=== PATIENT | female | born 1985 | race African-American/Black ===

== ENCOUNTER 2020-02-15 17:45 | Observation (INO) | payer SELFPAY ==
[~2020-02-15] VITALS: Ht 170.2 cm; Wt 64.9 kg
[~2020-02-15 17:45] MED LIST: PREN-88 PO
== END 2020-02-15 20:10 | disposition home or self-care (01) ==
LOC: 8 EST LDRP 17:45
PROVIDERS: ADMIT Obstetrics & Gynecology; ATTEND Obstetrics & Gynecology
DX: O26.892 Other specified pregnancy related conditions, second trimester (principal); R19.7 Diarrhea, unspecified; R10.30 Lower abdominal pain, unspecified; M54.5 Low back pain; Z3A.21 21 weeks gestation of pregnancy
CPT/HCPCS: 76805; 99281; G0378

== ENCOUNTER 2020-02-19 06:37 | Emergency (ER) | payer MEDICAID, OTHER, SELFPAY ==
[~2020-02-19] VITALS: Ht 170.2 cm; Wt 84.0 kg
[2020-02-19] MEDS ORDERED: SODIUM CHLORIDE 0.9% 1,000 ML IV ONE (07:14)
[2020-02-19 07:43] LABS: BASOPHILS % 0.4 % (0.0-2.0); EOSINOPHILS % 0.1 % (0.0-5.0); HEMATOCRIT. 35.1 % (36.0-48.0); HEMOGLOBIN. 12.3 g/dL (12.0-16.0); LYMPHOCYTES % 33.2 % (20.0-50.0); MEAN CORPUSCULAR HEMOGLOBIN 31.7 pg (28.0-32.0); MEAN CORPUSCULAR VOLUME 90.7 fL (81.0-99.0); MEAN PLATELET VOLUME 10.7 fl (7.4-10.4); MONOCYTES % 6.2 % (2.0-8.0); NEUTROPHILS % 60.1 % (40.0-76.0); PLATELET 164 x1000/uL (130-400); RED BLOOD CELL COUNT 3.87 mill/uL (4.2-5.4); RED CELL DISTRIBUTION WIDTH 14.1 % (11.6-14.6)
[2020-02-19 08:09] LABS: CHLORIDE 107 mEq/L (98-107)
[2020-02-19] MEDS ORDERED: POTASSIUM CHLORIDE 20MEQ TABLET SR PO ONE (08:15)
[2020-02-19 10:02] LABS: CLARITY URINE CLOUDY (CLEAR); COLOR URINE YELLOW (YELLOW); KETONES URINE 1+ (NEGATIVE); LEUKOCYTE ESTERASE URINE 2+ (NEGATIVE); NITRITE URINE POSITIVE (NEGATIVE); OCCULT BLOOD URINE NEGATIVE (NEGATIVE); PROTEIN URINE TRACE (NEGATIVE); SPECIFIC GRAVITY URINE 1.019 (1.005-1.030)
[2020-02-19 10:30] VITALS: BP 119/67
== END 2020-02-19 10:30 | disposition home or self-care (01) ==
LOC: ER 06:37
DX: O98.512 Other viral diseases complicating pregnancy, second trimester (principal); U07.1 COVID-19; O23.42 Unspecified infection of urinary tract in pregnancy, second trimester; O26.892 Other specified pregnancy related conditions, second trimester; E87.6 Hypokalemia; F41.9 Anxiety disorder, unspecified; G43.909 Migraine, unspecified, not intractable, without status migrainosus; J45.909 Unspecified asthma, uncomplicated; Z3A.21 21 weeks gestation of pregnancy; Z88.0 Allergy status to penicillin
CPT/HCPCS: 36415; 71045; 80053; 81003; 81025; 82728; 83690; 85025; 85379; 86850; 86900; 86901; 87086; 87635; 99284; J7030

== ENCOUNTER 2020-05-11 22:29 | Observation (INO) | payer MEDICAID ==
[~2020-05-11] VITALS: Ht 170.2 cm; Wt 88.5 kg
[2020-05-11] MEDS ORDERED: TERBUTALINE SULFATE 1MG/ML VIAL SUBCUT PRN (23:30)
[2020-05-11] MEDS ORDERED: SODIUM CHLORIDE 0.9% 1,000 ML IV ONE (23:30)
[2020-05-11 23:51] LABS: CLARITY URINE CLEAR (CLEAR); COLOR URINE YELLOW (YELLOW); KETONES URINE NEGATIVE (NEGATIVE); LEUKOCYTE ESTERASE URINE 2+ (NEGATIVE); NITRITE URINE NEGATIVE (NEGATIVE); OCCULT BLOOD URINE NEGATIVE (NEGATIVE); PROTEIN URINE NEGATIVE (NEGATIVE); SPECIFIC GRAVITY URINE 1.016 (1.005-1.030); UROBILINOGEN URINE 0.2 E.U./dL (0.2-1.0)
== END 2020-05-12 00:34 | disposition left against medical advice (07) ==
LOC: 8 EST LDRP 22:29
PROVIDERS: ADMIT Specialist; ATTEND Specialist
DX: O26.893 Other specified pregnancy related conditions, third trimester (principal); R10.9 Unspecified abdominal pain; M54.9 Dorsalgia, unspecified; Z3A.30 30 weeks gestation of pregnancy
CPT/HCPCS: 81003; 82731; 99281; G0378

== ENCOUNTER 2020-05-24 09:37 | Observation (INO) | payer MEDICAID ==
[~2020-05-24] VITALS: Ht 170.2 cm; Wt 88.5 kg
[2020-05-24] MEDS ORDERED: LACTATED RINGERS 1,000 ML IV SCH (10:18)
[2020-05-24 11:13] LABS: BASOPHILS % 0.4 % (0.0-2.0); EOSINOPHILS % 0.5 % (0.0-5.0); HEMATOCRIT. 28.1 % (36.0-48.0); HEMOGLOBIN. 9.5 g/dL (12.0-16.0); MEAN CORPUSCULAR HEMOGLOBIN 30.8 pg (28.0-32.0); MEAN CORPUSCULAR VOLUME 91.2 fL (81.0-99.0); MEAN PLATELET VOLUME 10.3 fl (7.4-10.4); MONOCYTES % 8.3 % (2.0-8.0); NEUTROPHILS % 65.8 % (40.0-76.0); PLATELET 152 x1000/uL (130-400); RED BLOOD CELL COUNT 3.08 mill/uL (4.2-5.4); RED CELL DISTRIBUTION WIDTH 14.8 % (11.6-14.6)
[2020-05-24 11:21] LABS: CLARITY URINE CLEAR (CLEAR); COLOR URINE YELLOW (YELLOW); KETONES URINE NEGATIVE (NEGATIVE); LEUKOCYTE ESTERASE URINE 1+ (NEGATIVE); NITRITE URINE NEGATIVE (NEGATIVE); OCCULT BLOOD URINE NEGATIVE (NEGATIVE); PROTEIN URINE NEGATIVE (NEGATIVE); SPECIFIC GRAVITY URINE 1.005 (1.005-1.030); UROBILINOGEN URINE 0.2 E.U./dL (0.2-1.0)
== END 2020-05-24 12:45 | disposition home or self-care (01) ==
LOC: 8 EST LDRP 09:37
PROVIDERS: ADMIT Obstetrics & Gynecology; ATTEND Obstetrics & Gynecology
DX: O26.893 Other specified pregnancy related conditions, third trimester (principal); R10.30 Lower abdominal pain, unspecified; Z3A.35 35 weeks gestation of pregnancy
CPT/HCPCS: 36415; 76805; 76818; 76830; 81003; 85025; 96360; 96361; 99281; G0378; J7120

== ENCOUNTER 2020-06-21 00:24 | Observation (INO) | payer MEDICAID ==
[~2020-06-21] VITALS: Ht 170.2 cm; Wt 91.2 kg
[2020-06-21] MEDS ORDERED: FERR325T6 PO (01:21)
[2020-06-29] MEDS ORDERED: IBUP-2030 MT (07:07)
== END 2020-06-21 02:10 | disposition home or self-care (01) ==
LOC: 8 EST LDRP 00:24
PROVIDERS: ADMIT Obstetrics & Gynecology; ATTEND Obstetrics & Gynecology
DX: O26.893 Other specified pregnancy related conditions, third trimester (principal); R10.9 Unspecified abdominal pain; Z3A.36 36 weeks gestation of pregnancy
CPT/HCPCS: 59025; G0378; 99281

== ENCOUNTER 2020-12-30 13:28 | Emergency (ER) | payer MEDICAID ==
[~2020-12-30] VITALS: Ht 167.6 cm; Wt 87.0 kg
[~2020-12-30 13:28] MED LIST changes: +FERR325T6 PO; +IBUP-2030 MT
[2020-12-30] MEDS ORDERED: IBUPROFEN 600MG TABLET PO STA (14:09)
[2020-12-30] MEDS ORDERED: LORAZEPAM 0.5MG TABLET PO ONE (14:15)
[2020-12-30 15:01] LABS: CHLORIDE 108 mEq/L (98-107)
[2020-12-30 15:07] LABS: BASOPHILS % 0.6 % (0.0-2.0); EOSINOPHILS % 0.5 % (0.0-5.0); HEMATOCRIT. 40.4 % (36.0-48.0); HEMOGLOBIN. 13.2 g/dL (12.0-16.0); LYMPHOCYTES % 29.2 % (20.0-50.0); MEAN CORPUSCULAR HEMOGLOBIN 29.3 pg (28.0-32.0); MEAN CORPUSCULAR VOLUME 90.1 fL (81.0-99.0); MEAN PLATELET VOLUME 10.7 fl (7.4-10.4); MONOCYTES % 6.9 % (2.0-8.0); NEUTROPHILS % 62.8 % (40.0-76.0); PLATELET 189 x1000/uL (130-400); RED BLOOD CELL COUNT 4.48 mill/uL (4.2-5.4); RED CELL DISTRIBUTION WIDTH 14.5 % (11.6-14.6)
[2020-12-30] MEDS ORDERED: IBUP-2028 MT (15:17)
[2020-12-30] MEDS ORDERED: LORA-249 MT (15:17)
[2020-12-30 15:25] VITALS: BP 118/79
== END 2020-12-30 15:46 | disposition home or self-care (01) ==
LOC: ER 14:19
DX: F41.1 Generalized anxiety disorder (principal); J45.909 Unspecified asthma, uncomplicated; Z98.890 Other specified postprocedural states; Z88.0 Allergy status to penicillin
CPT/HCPCS: 36415; 80053; 85025; 93005; 99284

== ENCOUNTER 2021-05-02 22:17 | Emergency (ER) | payer MEDICAID ==
[~2021-05-02] VITALS: Ht 167.6 cm; Wt 100.0 kg
[~2021-05-02 22:17] MED LIST changes: +IBUP-2028 MT; +LORA-249 MT
[2021-05-03] MEDS ORDERED: IBUPROFEN 600MG TABLET PO STA (00:33)
[2021-05-03 02:05] LABS: CLARITY URINE CLOUDY (CLEAR); COLOR URINE YELLOW (YELLOW); KETONES URINE NEGATIVE (NEGATIVE); LEUKOCYTE ESTERASE URINE NEGATIVE (NEGATIVE); NITRITE URINE NEGATIVE (NEGATIVE); OCCULT BLOOD URINE NEGATIVE (NEGATIVE); PH URINE 6.5 (4.5-8.0); PROTEIN URINE NEGATIVE (NEGATIVE); SPECIFIC GRAVITY URINE 1.011 (1.005-1.030); UROBILINOGEN URINE 0.2 E.U./dL (0.2-1.0)
[2021-05-03 02:29] VITALS: BP 138/86
[2021-05-03] MEDS ORDERED: NAPR-681 PO (02:39)
== END 2021-05-03 02:49 | disposition home or self-care (01) ==
LOC: ER 22:17
DX: J02.8 Acute pharyngitis due to other specified organisms (principal); F41.9 Anxiety disorder, unspecified; Z98.890 Other specified postprocedural states; Z88.0 Allergy status to penicillin
CPT/HCPCS: 81003; 81025; 87070; 87430; 93005; 99284

== ENCOUNTER 2021-05-07 12:22 | Emergency (ER) | payer MEDICAID ==
[~2021-05-07] VITALS: Ht 172.7 cm; Wt 100.0 kg
[~2021-05-07 12:22] MED LIST changes: +NAPR-681 PO
[2021-05-07] MEDS ORDERED: ACETAMINOPHEN WITH CODEINE 300/30MG TABLET PO ONE (12:45)
[2021-05-07] MEDS ORDERED: IBUP-2030 MT (13:25)
[2021-05-07 13:57] VITALS: BP 118/73
== END 2021-05-07 13:57 | disposition home or self-care (01) ==
LOC: ER 12:22
DX: S90.01XA Contusion of right ankle, initial encounter (principal); S90.31XA Contusion of right foot, initial encounter; F41.9 Anxiety disorder, unspecified; J45.909 Unspecified asthma, uncomplicated; Z98.890 Other specified postprocedural states; Z88.0 Allergy status to penicillin; W01.0XXA Fall on same level from slipping, tripping and stumbling without subsequent striking against object, initial encounter; Y93.89 Activity, other specified; Y92.018 Other place in single-family (private) house as the place of occurrence of the external cause
CPT/HCPCS: 73610; 73630; 99284

== ENCOUNTER 2021-09-02 16:58 | Emergency (ER) | payer SELFPAY ==
[~2021-09-02] VITALS: Ht 167.6 cm; Wt 95.0 kg
[2021-09-02] MEDS ORDERED: ACETAMINOPHEN 325MG TABLET PO ONE (18:30)
[2021-09-02] MEDS ORDERED: LORAZEPAM 1MG TABLET PO ONE (18:30)
[2021-09-02 19:03] LABS: BASOPHILS % 0.6 % (0.0-2.0); EOSINOPHILS % 0.8 % (0.0-5.0); HEMATOCRIT. 34.7 % (36.0-48.0); HEMOGLOBIN. 11.7 g/dL (12.0-16.0); LYMPHOCYTES % 30.4 % (20.0-50.0); MEAN CORPUSCULAR VOLUME 86.4 fL (81.0-99.0); MEAN PLATELET VOLUME 10.5 fl (7.4-10.4); NEUTROPHILS % 61.2 % (40.0-76.0); PLATELET 205 x1000/uL (130-400); RED BLOOD CELL COUNT 4.02 mill/uL (4.2-5.4); RED CELL DISTRIBUTION WIDTH 15.6 % (11.6-14.6)
[2021-09-02 19:08] LABS: CHLORIDE 110 mEq/L (98-107)
[2021-09-02] MEDS ORDERED: ACET-2708 MT (19:49)
[2021-09-02 20:26] VITALS: BP 110/77
== END 2021-09-02 20:33 | disposition home or self-care (01) ==
LOC: ER 16:58
DX: R07.89 Other chest pain (principal); J45.909 Unspecified asthma, uncomplicated; Z88.0 Allergy status to penicillin; Z79.899 Other long term (current) drug therapy; Z98.890 Other specified postprocedural states
CPT/HCPCS: 36415; 71045; 80053; 83880; 84484; 85025; 93005; 99285

== ENCOUNTER 2022-01-20 11:23 | Emergency (ER) | payer MEDICAID ==
[~2022-01-20] VITALS: Ht 170.2 cm; Wt 92.0 kg
[~2022-01-20 11:23] MED LIST changes: +ACET-2708 MT
[2022-01-20] MEDS ORDERED: MORPHINE SULFATE 4 MG/ML CPJ (NOT FOR IM USE) IV STA (11:33)
[2022-01-20] MEDS ORDERED: ONDANSETRON HCL 4MG/2ML INJ IV ONE (11:45)
[2022-01-20] MEDS ORDERED: SODIUM CHLORIDE 0.9% 1,000 ML IV ONE (11:45)
[2022-01-20] MEDS ORDERED: ACETAMINOPHEN 325MG TABLET PO ONE (12:00)
[2022-01-20 12:01] LABS: BASOPHILS % 0.6 % (0.0-2.0); EOSINOPHILS % 0.4 % (0.0-5.0); HEMATOCRIT. 33.8 % (36.0-48.0); HEMOGLOBIN. 11.5 g/dL (12.0-16.0); LYMPHOCYTES % 28.1 % (20.0-50.0); MEAN CORPUSCULAR HEMOGLOBIN 28.8 pg (28.0-32.0); MEAN PLATELET VOLUME 10.3 fl (7.4-10.4); MONOCYTES % 7.5 % (2.0-8.0); NEUTROPHILS % 63.4 % (40.0-76.0); PLATELET 210 x1000/uL (130-400); RED BLOOD CELL COUNT 3.98 mill/uL (4.2-5.4); RED CELL DISTRIBUTION WIDTH 15.6 % (11.6-14.6)
[2022-01-20 12:08] LABS: CHLORIDE 110 mEq/L (98-107)
[2022-01-20 12:13] LABS: HCG SCREEN NEGATIVE
[2022-01-20] MEDS ORDERED: TOPUD MT (14:47)
[2022-01-20 15:05] VITALS: BP 126/76
== END 2022-01-20 15:05 | disposition home or self-care (01) ==
LOC: ER 11:48
DX: N88.8 Other specified noninflammatory disorders of cervix uteri (principal); F12.10 Cannabis abuse, uncomplicated; J45.909 Unspecified asthma, uncomplicated; Z88.0 Allergy status to penicillin; Z98.890 Other specified postprocedural states
CPT/HCPCS: 36415; 76830; 76856; 80053; 83690; 84703; 85025; 96361; 96374; 99284; J2270; J2405; J7030

== ENCOUNTER 2022-07-04 09:11 | Emergency (ER) | payer MEDICAID, OTHER ==
[~2022-07-04] VITALS: Ht 170.2 cm; Wt 90.0 kg
[~2022-07-04 09:11] MED LIST changes: +TOPUD MT
[2022-07-04] MEDS ORDERED: KETOROLAC 60MG/2ML VIAL IM ONE (09:15)
[2022-07-04] MEDS ORDERED: ACETAMINOPHEN WITH CODEINE 300/30MG TABLET PO ONE (09:15)
[2022-07-04 10:16] LABS: CHLORIDE 108 mEq/L (98-107)
[2022-07-04 10:17] LABS: BASOPHILS % 0.4 % (0.0-2.0); EOSINOPHILS % 0.1 % (0.0-5.0); HEMOGLOBIN. 11.9 g/dL (12.0-16.0); MEAN CORPUSCULAR HEMOGLOBIN 28.2 pg (28.0-32.0); MEAN CORPUSCULAR VOLUME 85.1 fL (81.0-99.0); MONOCYTES % 10.3 % (2.0-8.0); NEUTROPHILS % 70.2 % (40.0-76.0); PLATELET 205 x1000/uL (130-400); RED BLOOD CELL COUNT 4.23 mill/uL (4.2-5.4); RED CELL DISTRIBUTION WIDTH 15.9 % (11.6-14.6)
[2022-07-04 10:27] LABS: HCG SCREEN NEGATIVE
[2022-07-04] MEDS ORDERED: MORPHINE SULFATE 4 MG/ML CPJ (NOT FOR IM USE) IV ONE (11:15)
[2022-07-04 11:30] LABS: PROTHROMBIN TIME 11.2 sec (9.6-11.0)
[2022-07-04] MEDS ORDERED: TOPUD PO (12:41)
[2022-07-04] MEDS ORDERED: METRONIDAZOLE 500 MG PREMIX 100 ML IV ONE (13:00)
[2022-07-04] MEDS ORDERED: LEVOFLOXACIN 750MG PREMIX 150 ML IV ONE (13:00)
[2022-07-04] MEDS ORDERED: ACETAMINOPHEN 325MG TABLET PO STA (13:14)
[2022-07-04] MEDS ORDERED: IPRATROPIUM/ALBUTEROL 0.5-3(2.5)MG/3ML NEB HHN PRN (14:00)
[2022-07-04] MEDS ORDERED: ONDANSETRON HCL 4MG/2ML INJ IV PRN (14:00)
[2022-07-04] MEDS ORDERED: CLONIDINE 0.1MG TABLET PO PRN (14:00)
[2022-07-04] MEDS ORDERED: METRONIDAZOLE 500 MG PREMIX 100 ML IV SCH (14:00)
[2022-07-04] MEDS ORDERED: ACETAMINOPHEN 325MG TABLET PO PRN (14:00)
[2022-07-04] MEDS ORDERED: SODIUM CHLORIDE 0.9% 1,000 ML IV SCH (14:00)
[2022-07-04] MEDS ORDERED: KETOROLAC 30MG/ML VIAL IV PRN (14:00)
[2022-07-04] MEDS ORDERED: DIPHENHYDRAMINE 50MG/ML VIAL IV PRN (14:00)
[2022-07-04] MEDS ORDERED: ONDANSETRON 4MG ODT PO ONE (22:45)
[2022-07-05 00:35] VITALS: BP 130/59
[2022-07-05] MEDS ORDERED: LEVOFLOXACIN 500MG PREMIX 100 ML IV SCH (11:00)
== END 2022-07-05 00:37 | disposition home or self-care (01) ==
LOC: ER 09:12 → EDBEDREQ 13:54 → CANBEDREQ 16:05 → ER 07-05 00:37 → CANBEDREQ 07-05 00:42
DX: R10.9 Unspecified abdominal pain (principal); M54.9 Dorsalgia, unspecified; K52.9 Noninfective gastroenteritis and colitis, unspecified; D64.9 Anemia, unspecified; F41.9 Anxiety disorder, unspecified; J45.909 Unspecified asthma, uncomplicated; F12.10 Cannabis abuse, uncomplicated; Z98.890 Other specified postprocedural states; Z79.899 Other long term (current) drug therapy; Z20.822 Contact with and (suspected) exposure to COVID-19
CPT/HCPCS: 36415; 74176; 80053; 83690; 84703; 85025; 85610; 87426; 93970; 96365; 96368; 96372; 96375; 99285; J1885; J1956; J2405; J3490; Q0162; J2270

== ENCOUNTER 2022-08-25 10:00 | Emergency (ER) | payer MEDICAID, OTHER ==
[~2022-08-25] VITALS: Ht 170.2 cm; Wt 86.2 kg
[~2022-08-25 10:00] MED LIST changes: +TOPUD PO
[2022-08-25] MEDS ORDERED: ONDANSETRON HCL 4MG/2ML INJ IV STA (10:27)
[2022-08-25] MEDS ORDERED: KETOROLAC 15MG/ML VIAL IV ONE (10:30)
[2022-08-25] MEDS ORDERED: SODIUM CHLORIDE 0.9% 1,000 ML IV ONE (10:30)
[2022-08-25 10:51] LABS: CHLORIDE 104 mEq/L (98-107)
[2022-08-25 11:02] LABS: INR 1.1; PROTHROMBIN TIME 11.4 sec (9.6-11.0)
[2022-08-25 11:27] LABS: HCG SCREEN POSITIVE
[2022-08-25 11:43] LABS: BASOPHILS % 0.5 % (0.0-2.0); EOSINOPHILS % 0.2 % (0.0-5.0); HEMATOCRIT. 33.7 % (36.0-48.0); HEMOGLOBIN. 11.1 g/dL (12.0-16.0); MEAN CORPUSCULAR HEMOGLOBIN 28.6 pg (28.0-32.0); MEAN CORPUSCULAR VOLUME 86.4 fL (81.0-99.0); MEAN PLATELET VOLUME 9.9 fl (7.4-10.4); MONOCYTES % 7.3 % (2.0-8.0); PLATELET 261 x1000/uL (130-400); RED BLOOD CELL COUNT 3.89 mill/uL (4.2-5.4); RED CELL DISTRIBUTION WIDTH 16.9 % (11.6-14.6)
[2022-08-25 13:55] VITALS: BP 121/82
== END 2022-08-25 14:29 | disposition home or self-care (01) ==
LOC: ER 10:00
DX: O26.891 Other specified pregnancy related conditions, first trimester (principal); R10.9 Unspecified abdominal pain; Z88.0 Allergy status to penicillin; Z3A.01 Less than 8 weeks gestation of pregnancy
CPT/HCPCS: 36415; 71045; 76700; 76801; 76817; 80053; 83690; 84702; 84703; 85025; 85610; 96361; 96374; 96375; 99285; J1885; J2405; J7030

== ENCOUNTER 2023-01-15 19:33 | Observation (INO) | payer OTHER ==
[~2023-01-15] VITALS: Ht 170.2 cm; Wt 68.0 kg
[2023-01-15 21:06] LABS: CLARITY URINE CLOUDY (CLEAR); COLOR URINE YELLOW (YELLOW); KETONES URINE 3+ (NEGATIVE); LEUKOCYTE ESTERASE URINE 2+ (NEGATIVE); NITRITE URINE NEGATIVE (NEGATIVE); OCCULT BLOOD URINE NEGATIVE (NEGATIVE); PH URINE 6.5 (4.5-8.0); PROTEIN URINE NEGATIVE (NEGATIVE); SPECIFIC GRAVITY URINE 1.021 (1.005-1.030); UROBILINOGEN URINE 0.2 E.U./dL (0.2-1.0)
== END 2023-01-15 22:30 | disposition home or self-care (01) ==
LOC: INTOOBSV 19:33 → 8 EST LDRP 19:33
PROVIDERS: ADMIT Obstetrics & Gynecology; ATTEND Obstetrics & Gynecology
DX: O26.892 Other specified pregnancy related conditions, second trimester (principal); R10.9 Unspecified abdominal pain; O62.9 Abnormality of forces of labor, unspecified; O99.342 Other mental disorders complicating pregnancy, second trimester; F41.9 Anxiety disorder, unspecified; Z3A.27 27 weeks gestation of pregnancy
CPT/HCPCS: 59025; 76805; 76817; 81003; 87077; 87086; G0378; 99281

== ENCOUNTER 2023-02-16 19:46 | Observation (INO) | payer OTHER ==
[~2023-02-16] VITALS: Ht 170.2 cm; Wt 90.7 kg
[2023-02-16] MEDS ORDERED: BUTORPHANOL TARTRATE 2 MG/ML VIAL IV NR (21:00)
[2023-02-16] MEDS ORDERED: LACTATED RINGERS 1,000 ML IV SCH (21:00)
[2023-02-16 22:09] LABS: BASOPHILS % 0.5 % (0.0-2.0); EOSINOPHILS % 0.5 % (0.0-5.0); HEMOGLOBIN. 9.4 g/dL (12.0-16.0); LYMPHOCYTES % 26.3 % (20.0-50.0); MEAN CORPUSCULAR HEMOGLOBIN 28.7 pg (28.0-32.0); MEAN CORPUSCULAR VOLUME 85.8 fL (81.0-99.0); MEAN PLATELET VOLUME 10.1 fl (7.4-10.4); MONOCYTES % 6.6 % (2.0-8.0); NEUTROPHILS % 66.1 % (40.0-76.0); PLATELET 172 x1000/uL (130-400); RED BLOOD CELL COUNT 3.27 mill/uL (4.2-5.4); RED CELL DISTRIBUTION WIDTH 15.7 % (11.6-14.6)
[2023-02-16 22:11] LABS: CLARITY URINE CLEAR (CLEAR); COLOR URINE YELLOW (YELLOW); KETONES URINE 1+ (NEGATIVE); LEUKOCYTE ESTERASE URINE 1+ (NEGATIVE); NITRITE URINE NEGATIVE (NEGATIVE); OCCULT BLOOD URINE NEGATIVE (NEGATIVE); PH URINE 6.5 (4.5-8.0); PROTEIN URINE NEGATIVE (NEGATIVE); SPECIFIC GRAVITY URINE 1.019 (1.005-1.030)
[2023-02-16 22:23] LABS: *AMPHETAMINES SCREEN URINE NEGATIVE (NEGATIVE); *BARBITURATES SCREEN URINE NEGATIVE (NEGATIVE); *BENZODIAZEPINES SCREEN URINE NEGATIVE (NEGATIVE); *COCAINE SCREEN URINE NEGATIVE (NEGATIVE); METHADONE URINE SCREEN NEGATIVE (NEGATIVE); OPIATES URINE SCREEN NEGATIVE (NEGATIVE); PHENCYCLIDINE URINE SCREEN NEGATIVE (NEGATIVE)
[2023-02-16 22:28] LABS: CANNABINOID URINE SCREEN PRESUMTIVE POSITIVE (NEGATIVE)
[2023-02-16] MEDS ORDERED: METRONIDAZOLE 500 MG PREMIX 100 ML IV NR (23:00)
[2023-02-22 13:14] LABS: CANNABINOID CONFIRMATION URINE Positive (.)
== END 2023-02-17 01:15 | disposition home or self-care (01) ==
LOC: 8 EST LDRP 19:46
PROVIDERS: ADMIT Obstetrics & Gynecology; ATTEND Obstetrics & Gynecology
DX: O26.893 Other specified pregnancy related conditions, third trimester (principal); R10.9 Unspecified abdominal pain; R51.9 Headache, unspecified; R11.0 Nausea; H53.8 Other visual disturbances; R06.02 Shortness of breath; Z3A.30 30 weeks gestation of pregnancy; Z79.899 Other long term (current) drug therapy; Z98.891 History of uterine scar from previous surgery
CPT/HCPCS: 36415; 80051; 80305; 80349; 81003; 85025; 96361; 96365; 96366; G0378; J3490; 96360; 99281

== ENCOUNTER 2023-03-03 12:19 | Observation (INO) | payer OTHER ==
[~2023-03-03] VITALS: Ht 167.6 cm; Wt 81.6 kg
[2023-03-03] MEDS ORDERED: LACTATED RINGERS 1,000 ML IV SCH (12:45)
[2023-03-03 13:25] LABS: BASOPHILS % 0.4 % (0.0-2.0); EOSINOPHILS % 0.5 % (0.0-5.0); HEMATOCRIT. 27.7 % (36.0-48.0); HEMOGLOBIN. 9.4 g/dL (12.0-16.0); MEAN CORPUSCULAR VOLUME 85.6 fL (81.0-99.0); MEAN PLATELET VOLUME 11.2 fl (7.4-10.4); MONOCYTES % 6.9 % (2.0-8.0); NEUTROPHILS % 69.2 % (40.0-76.0); PLATELET 136 x1000/uL (130-400); RED BLOOD CELL COUNT 3.24 mill/uL (4.2-5.4); RED CELL DISTRIBUTION WIDTH 16.5 % (11.6-14.6)
[2023-03-03] MEDS ORDERED: ONDANSETRON HCL 4MG/2ML INJ IV NR (13:30)
[2023-03-03 15:00] LABS: CHLORIDE 111 mEq/L (98-107)
[2023-03-03 15:40] LABS: CLARITY URINE CLEAR (CLEAR); COLOR URINE YELLOW (YELLOW); KETONES URINE 1+ (NEGATIVE); LEUKOCYTE ESTERASE URINE 1+ (NEGATIVE); NITRITE URINE NEGATIVE (NEGATIVE); OCCULT BLOOD URINE NEGATIVE (NEGATIVE); PROTEIN URINE NEGATIVE (NEGATIVE); UROBILINOGEN URINE 0.2 E.U./dL (0.2-1.0)
== END 2023-03-03 17:21 | disposition home or self-care (01) ==
LOC: 8 EST LDRP 12:19
PROVIDERS: ADMIT Obstetrics & Gynecology; ATTEND Obstetrics & Gynecology
DX: O99.891 Other specified diseases and conditions complicating pregnancy (principal); M54.9 Dorsalgia, unspecified; R10.9 Unspecified abdominal pain; Z3A.32 32 weeks gestation of pregnancy
CPT/HCPCS: 36415; 59025; 76805; 76818; 80053; 81003; 85025; 96361; 96374; G0378; J2405; 99281; G0379

== ENCOUNTER 2023-03-05 13:02 | Observation (INO) | payer OTHER ==
[~2023-03-05] VITALS: Ht 170.2 cm; Wt 81.6 kg
== END 2023-03-05 15:10 | disposition home or self-care (01) ==
LOC: 8 EST A/PP 13:02
PROVIDERS: ADMIT Obstetrics & Gynecology; ATTEND Obstetrics & Gynecology
DX: O36.8330 Maternal care for abnormalities of the fetal heart rate or rhythm, third trimester, not applicable or unspecified (principal); O42.913 Preterm premature rupture of membranes, unspecified as to length of time between rupture and onset of labor, third trimester; Z3A.33 33 weeks gestation of pregnancy
CPT/HCPCS: 59025; 76815; 76818; G0378; 99281; G0379

== ENCOUNTER 2023-03-27 05:22 | Emergency (ER) | payer OTHER ==
[~2023-03-27] VITALS: Ht 170.2 cm; Wt 81.2 kg
[2023-03-27] MEDS ORDERED: ACETAMINOPHEN 325MG TABLET PO ONE (06:15)
[2023-03-27 07:16] LABS: BASOPHILS % 0.5 % (0.0-2.0); EOSINOPHILS % 0.6 % (0.0-5.0); HEMATOCRIT. 30.2 % (36.0-48.0); HEMOGLOBIN. 10.2 g/dL (12.0-16.0); MEAN CORPUSCULAR HEMOGLOBIN 28.7 pg (28.0-32.0); MEAN CORPUSCULAR VOLUME 84.8 fL (81.0-99.0); MEAN PLATELET VOLUME 10.8 fl (7.4-10.4); MONOCYTES % 8.4 % (2.0-8.0); NEUTROPHILS % 62.5 % (40.0-76.0); PLATELET 113 x1000/uL (130-400); RED BLOOD CELL COUNT 3.56 mill/uL (4.2-5.4); RED CELL DISTRIBUTION WIDTH 16.4 % (11.6-14.6)
[2023-03-27 07:24] LABS: CHLORIDE 108 mEq/L (98-107)
[2023-03-27 07:25] LABS: D-DIMER 1.4 mg/L FEU (<0.50); INR 0.9; PROTHROMBIN TIME 10.2 sec (9.6-11.0)
[2023-03-27 10:15] VITALS: BP 115/67
== END 2023-03-27 10:18 | disposition left against medical advice (07) ==
LOC: EDSTATUS 05:22 → ER 05:22
DX: O26.893 Other specified pregnancy related conditions, third trimester (principal); Z3A.38 38 weeks gestation of pregnancy; R07.89 Other chest pain; O99.513 Diseases of the respiratory system complicating pregnancy, third trimester; D64.9 Anemia, unspecified
CPT/HCPCS: 36415; 71045; 80053; 83880; 84484; 85025; 85379; 93005; 93970; 99281; 99285